=== PATIENT | male | born 1975 | race Caucasian/White ===

== ENCOUNTER 2018-12-13 09:38 | Emergency (ER) | payer OTHER ==
[~2018-12-13] VITALS: Ht 180.3 cm; Wt 106.6 kg
[~2018-12-13 09:38] MED LIST: ALBU90OI6 INH; ASPI325 PO; ASPI81CH PO; ATOR80 PO; Aspirin EC325 MG PO; BELPHEER PO; Benadryl25 MG PO; CYCL10 PO; EPIN.3I IM; Epipen0.3 MG/0.3 IM; FLUT.05NI; HYDACE5 PO; HYDR1TAB94 PO; KETO10 PO; PRED20 PO; PROM25 PO; Prednisone20 MG PO; RANI150 PO; RXCLIN PO; SULTRIDS PO; Ultram50 MG PO
[2018-12-13] MEDS ORDERED: Robaxin500 MG PO (11:00)
[2018-12-13] MEDS ORDERED: Ultram50 MG PO (11:00)
[2018-12-13] MEDS ORDERED: PRED10 PO (11:00)
== END 2018-12-13 11:10 | disposition home or self-care (01) ==
LOC: ER 09:38
DX: G89.29 Other chronic pain (principal); M54.5 Low back pain; R20.0 Anesthesia of skin; I10 Essential (primary) hypertension; Z86.73 Personal history of transient ischemic attack (TIA), and cerebral infarction without residual deficits; Z87.891 Personal history of nicotine dependence
CPT/HCPCS: 96372; 99282-25; J1885

== ENCOUNTER 2023-01-01 08:31 | Emergency (ER) | payer OTHER ==
[~2023-01-01] VITALS: Ht 182.9 cm; Wt 106.6 kg
[~2023-01-01 08:31] MED LIST changes: +Neurontin 100100 MG PO; +PRED10 PO; +Robaxin500 MG PO
[2023-01-01 09:32] LABS: Source, Urine Clean Catch
[2023-01-01 09:36] LABS: BASOPHILS ABSOLUTE AUTO 0.06 K/mm3 (0.00-0.23); BASOPHILS PERCENT AUTO 1 % (0-2); EOSINOPHILS ABSOLUTE AUTO 0.49 K/mm3 (0.00-0.68); EOSINOPHILS PERCENT AUTO 8 % (0-6); Hematocrit 46.9 % (37.0-53.0); Hemoglobin 16.6 g/dL (13.5-17.5); IMMATURE GRAN ABSOLUTE AUTO 0.01 K/mm3 (0.00-0.10); IMMATURE GRAN PERCENT AUTO 0 % (0-1); LYMPHOCYTES ABSOLUTE AUTO 2.36 K/mm3 (0.84-5.20); LYMPHOCYTES PERCENT AUTO 39 % (21-46); MONOCYTES ABSOLUTE AUTO 0.76 K/mm3 (0.16-1.47); MONOCYTES PERCENT AUTO 13 % (4-13); Mean Corpuscular HGB Conc 35.4 g/dL (31.5-36.5); Mean Corpuscular Volume 91 fL (80-100); Mean Platelet Volume 9.1 fL (9.1-12.4); NEUTROPHILS ABSOLUTE AUTO 2.33 K/mm3 (1.96-9.15); NEUTROPHILS PERCENT AUTO 39 % (41-73); Platelet Count 165 K/mm3 (150-400); RDW Coefficient Variation 11.6 % (11.7-14.2); RDW Standard Deviation 38.8 fL (35.1-46.3); Red Blood Cell Count 5.18 M/mm3 (4.30-5.90); White Blood Cell Count 6.01 K/mm3 (4.00-11.30)
[2023-01-01 09:38] LABS: Appearance, Urine Clear (Clear); Blood, Urine 1+ (Neg); Color, Urine Red (P-Yellow); Glucose Qualitative, Urine Neg (Neg); Ketones, Urine Neg (Neg); Leukocyte Esterase, Urine 1+ (Neg); Nitrite, Urine Neg (Neg); Protein, Urine 1+ (Neg); Specific Gravity, Urine 1.025 (1.003-1.022); Urobilinogen, Urine 2+ (Normal)
[2023-01-01 09:48] LABS: Bilirubin, Urine 1+ (Neg)
[2023-01-01 09:50] LABS: Amorphous Light (0-Heavy); Bacteria Rare /hpf; Mucus Mod (0-Heavy); Squamous Epithelial Cells Few /hpf (Few)
[2023-01-01 09:53] LABS: Albumin, Blood 3.9 g/dL (3.4-5.0); Albumin/Globulin Ratio 0.9 (0.8-1.8); Bilirubin, Total 1.2 mg/dL (0.1-1.0); Bun/Creatinine Ratio 7.6 (12.0-20.0); Calcium, Blood 8.7 mg/dL (8.5-10.1); Creatinine, Blood 0.66 mg/dL (0.60-1.20); Globulin, Blood 4.3 g/dL (2.2-4.0); Potassium, Blood 3.6 mmol/L (3.5-5.5); Total Protein, Blood 8.2 g/dL (6.4-8.2)
[2023-01-01] MEDS ORDERED: ONDA4ODT MM (10:04)
[2023-01-01] MEDS ORDERED: BELPTAB PO (10:08)
[2023-01-01 10:32] VITALS: BP 103/82
== END 2023-01-01 11:00 | disposition home or self-care (01) ==
LOC: ER 08:31
PROVIDERS: Physician Assistant
DX: K76.0 Fatty (change of) liver, not elsewhere classified (principal); I10 Essential (primary) hypertension; Z86.73 Personal history of transient ischemic attack (TIA), and cerebral infarction without residual deficits; Z87.891 Personal history of nicotine dependence
CPT/HCPCS: 74177; 80053; 81001; 83690; 85025; 96361; 96374-59; 99284-25; A9270; J2405; J7030; Q9967

== ENCOUNTER 2023-03-07 23:26 | Emergency (ER) | payer OTHER ==
[~2023-03-07] VITALS: Ht 182.9 cm; Wt 104.3 kg
[~2023-03-07 23:26] MED LIST changes: +BELPTAB PO; +ONDA4ODT MM
[2023-03-07 23:40] VITALS: BP 96/75
[2023-03-08 00:36] LABS: BASOPHILS PERCENT AUTO 1 % (0-2); EOSINOPHILS ABSOLUTE AUTO 0.52 K/mm3 (0.00-0.68); EOSINOPHILS PERCENT AUTO 7 % (0-6); Hematocrit 46.4 % (37.0-53.0); Hemoglobin 16.3 g/dL (13.5-17.5); IMMATURE GRAN ABSOLUTE AUTO 0.02 K/mm3 (0.00-0.10); IMMATURE GRAN PERCENT AUTO 0 % (0-1); LYMPHOCYTES ABSOLUTE AUTO 3.21 K/mm3 (0.84-5.20); LYMPHOCYTES PERCENT AUTO 42 % (21-46); MONOCYTES PERCENT AUTO 10 % (4-13); Mean Corpuscular HGB 32.5 pg (26.0-34.0); Mean Corpuscular HGB Conc 35.1 g/dL (31.5-36.5); Mean Corpuscular Volume 92 fL (80-100); Mean Platelet Volume 9.7 fL (9.1-12.4); NEUTROPHILS ABSOLUTE AUTO 3.03 K/mm3 (1.96-9.15); NEUTROPHILS PERCENT AUTO 39 % (41-73); Platelet Count 213 K/mm3 (150-400); RDW Coefficient Variation 11.9 % (11.7-14.2); RDW Standard Deviation 40.5 fL (35.1-46.3); Red Blood Cell Count 5.02 M/mm3 (4.30-5.90); White Blood Cell Count 7.68 K/mm3 (4.00-11.30)
[2023-03-08 01:06] LABS: Albumin, Blood 3.5 g/dL (3.4-5.0); Albumin/Globulin Ratio 0.8 (0.8-1.8); Bilirubin, Total 0.8 mg/dL (0.1-1.0); Bun/Creatinine Ratio 8.4 (12.0-20.0); Calcium, Blood 8.7 mg/dL (8.5-10.1); Creatinine, Blood 0.59 mg/dL (0.60-1.20); Globulin, Blood 4.2 g/dL (2.2-4.0); Potassium, Blood 3.6 mmol/L (3.5-5.5); Total Protein, Blood 7.7 g/dL (6.4-8.2)
== END 2023-03-08 02:19 | disposition home or self-care (01) ==
LOC: ER 23:26
PROVIDERS: Emergency Medicine
DX: K42.9 Umbilical hernia without obstruction or gangrene (principal); F10.129 Alcohol abuse with intoxication, unspecified; Y90.8 Blood alcohol level of 240 mg/100 ml or more; Z91.030 Bee allergy status; I10 Essential (primary) hypertension; F17.220 Nicotine dependence, chewing tobacco, uncomplicated
CPT/HCPCS: 80053; 83605; 85025; 96374; 99284-25; G0480; J1885

== ENCOUNTER 2024-01-15 19:41 | Emergency (ER) | payer OTHER ==
[~2024-01-15] VITALS: Ht 182.9 cm; Wt 92.1 kg
[~2024-01-15 19:41] MED LIST changes: +ALBU90OI INH; +EPIPEN0.3 MG/0.1 IM
[2024-01-15 19:45] VITALS: BP 117/82
[2024-01-15] MEDS ORDERED: Ketorolac Tromethamine 30mg Vial IM ONE (20:40)
== END 2024-01-15 21:20 | disposition home or self-care (01) ==
LOC: ER 19:41
DX: S20.211A Contusion of right front wall of thorax, initial encounter (principal); W18.39XA Other fall on same level, initial encounter; F17.220 Nicotine dependence, chewing tobacco, uncomplicated; Z91.030 Bee allergy status; Z79.899 Other long term (current) drug therapy
CPT/HCPCS: 71101; 96372; 99283-25; J1885